=== PATIENT | male | born 1995 | race Caucasian/White ===

== ENCOUNTER 2024-08-15 10:28 | Outpatient (CLI) | payer MEDICAID, SELFPAY | END 2024-08-15 10:29 | disposition home or self-care (01) | PROVIDERS: PCP Registered Nurse; Visit Provider Registered Nurse | DX: R10.13 Epigastric pain (principal) | CPT/HCPCS: 80053; 83690 ==

== ENCOUNTER 2024-08-23 10:39 | Outpatient (CLI) | payer MEDICAID, SELFPAY ==
--- NOTE | 2024-08-23 10:45 | CRLHL7_ITS ---
For Patients: As a result of the Century Cures Act, medical imaging exams and procedure reports are released immediately into your electronic medical record. You may view this report before your referring provider. If you have questions, please contact your health care provider. INDICATION: Right upper quadrant and epigastric abdomen pain TECHNIQUE: Ultrasound abdomen limited. Sonographic images of the right upper quadrant were obtained using cummings-scale and color Doppler images. COMPARISON: None FINDINGS: Liver: Diffusely increased echogenicity attenuating the sound beam with craniocaudal diameter of 18.2 centimeters. No masses. No intrahepatic biliary dilatation. Gallbladder: No stones or sludge. Normal wall thickness. No pericholecystic fluid. Common bile duct: 5 mm. Pancreas: Partially obscured by bowel gas without discrete lesion. Mildly increased echogenicity suggesting some fatty replacement/atrophy. Right kidney: Normal in size. Normal echotexture and cortex. No masses, stones, or hydronephrosis. Vasculature: Proximal abdominal aorta and IVC are normal. IMPRESSION: 1. Hepatomegaly with moderate to severe hepatic steatosis. 2. Unremarkable sonographic appearance of the gallbladder and biliary tree. Dictated by Severiano Patel MD @ 08/23/2024 12:33:20 PM (Electronically Signed)
== END 2024-08-23 10:40 | disposition home or self-care (01) ==
LOC: US 10:41
PROVIDERS: PCP Registered Nurse; Visit Provider Registered Nurse
DX: R10.13 Epigastric pain (principal); R16.0 Hepatomegaly, not elsewhere classified; K76.0 Fatty (change of) liver, not elsewhere classified; R74.8 Abnormal levels of other serum enzymes; R10.11 Right upper quadrant pain
CPT/HCPCS: 76705

== ENCOUNTER 2024-09-19 16:11 | Outpatient (CLI) | payer MEDICAID, SELFPAY | END 2024-09-19 16:12 | disposition home or self-care (01) | LOC: NFLDREF 16:11 | PROVIDERS: PCP Registered Nurse; Visit Provider Registered Nurse | DX: R74.8 Abnormal levels of other serum enzymes (principal) | CPT/HCPCS: 80076 ==

== ENCOUNTER 2025-01-19 13:08 | Emergency (ER) | payer MEDICAID, SELFPAY ==
--- OUTSIDE RECORDS SUMMARY | 2024-11-07 05:01 | XMS_ITS | Continuity of Care Document ---
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 Name Role Phone Eunice Smith CRNA Unavailable Unavailable Allergies, Adverse Reactions, Alerts Substance Reaction Status Criticality No Known Allergies Active No Inform ation Medications Medication Instructions Dosage Effective Dates (start - stop) Status Comments omeprazole 20 mg capsule,delayed release take 1 capsule by oral route every day 30 minutes to 1 hour before a meal 20 MG - Active Procedures Procedure Date Ugi Endo; W/bx 1/mx Level Iv-surg Path Gross/micro 25 FibroScan Office Cons Moderate Routine Serum Collection Advance Directives Directive Yes / No Effective Date File Name No Information Encounters Encounter Description Practice Location Reason(s) For Visit Diagnoses Date Provider Providers Copied on Encounter [facility], [address] [address], [place], [place], [id number], [place] tel:[phone] [facility] No Information Luis Dawson. [address] [facility], [facility] [address], [place], [place], [id number] , [place]. tel:[phone] Referring Provider: Guille Cruz, [address] [facility] [address], [place], [address] . tel:[phone] [facility], [address] [address], [place], [place], [address], [place] tel:[phone] [facility] Epigastric painEpigastric pain 5 Naveed Han. [address] [facility], [facility] [address], [place], [place], [id number] , [place]. tel:[phone] Referring Provider: Referral Self, USE FOR SELF REFERRALS. [facility], [address] [address], [place], [place], [id number], [place] tel:[phone] [facility] Other specified abnormal findings of blood chemistry 5 Abhijit Dior. [address] [facility], [facility] [address], [place], [place], [address] , [place]. tel:[phone] Referring Provider: Referral Self, USE FOR SELF REFERRALS. Office Cons Moderate [facility], [address] [address], [place], [place], [id number], [place] [phone] [facility] GI Symptoms or Concerns (chief complaint) Abnormal LFTsEpigastric pain 5 Abhijit Dior. [address] [facility], [facility] [address], [place], [place], [address] , [place]. tel:[phone] Referring Provider: Aby Barrett DNP, [address] [place], [address]. tel:[phone] Family History Family Member Type Diagnosis Age At Onset No Information Payers Payer name Insurance type Covered democrat ID Authordiliaa jaime(s) diego [facility] [id number] Social History Type Description Quantity Date Captured Comments Sex Male Smoking Status No Information Chief Complaint And Reason For Visit No Information Reason For Referral Reason For Referral No Information History Of Present Illness Encounter Date Complaint History Of Prese nt Illness GI Symptoms or Concerns This is a 29-year-old man presents for consultation of abnormal LFT and hepatic steatosis. Consult requested by Aby Barrett DNP. Patient was recently seen by the primary care office for further evaluation of a 2-month history of nonspecific intermittent upper abdominal pain. He underwent labs which revealed normal WBC 8.7, normal hemoglobin 16.7, MCV 87, and normal platelet count 317. Kidney function is preserved with serum creatinine 0.9. Labs September 19, 2024 incidentally noted abnormal LFT, AST 58, ALT 103, alkaline phosphatase 74, total bilirubin 0.7, albumin 4.8, and total protein 8.1. Patient has no known prior history of liver disease. I do not have baseline LFTs to compare with. Lipase normal 116.Patient underwent chest x-ray and x-ray abdomen, both largely unrevealing. X-ray abdomen revealed nonspecific nonobstructive bowel gas pattern and minimal proximal stool. Patient underwent abdominal ultrasound which revealed diffusely increased echogenicity of the liver suggestive of hepatic steatosis. Liver enlarged measuring 18.2 cm. No focal liver mass seen. No intrahepatic biliary dilation. Common bile duct 5 mm.No history of alcohol misuse. No known family history of chronic liver disease. No known history of type 2 diabetes, hypertension, or hyperlipidemia. Patient is known to have obstructive sleep apnea, mild. Patient is asymptomatic from liver standpoint. His main complaint is occasional epigastric pain and right upper quadrant pain associated with food intake. He also reports heartburn, but no dysphagia or odynophagia. No nocturnal symptoms. No changes in bowel habits. He reports regular bowel habits daily. No blood in the stool or black tarry stool. His weight is stable. He went on Prilosec 20 mg daily prescribed by primary care physician, yet no improvement in symptoms. He increased Prilosec to 20 mg twice daily which led to some but incomplete improvement in his symptoms. Functional Status Date Functional Assessmen t No Information Instructions Date Instruction Additional Infor mation No Information Assessments Type Assessment Date No Information Patient Care Teams Name Effective Dates (start - stop) Status Members No Information
--- OUTSIDE RECORDS SUMMARY | 2024-11-07 05:01 | XMS_ITS | Continuity of Care Document ---
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 [address] [facility], [facility] [address], [place], [place], [id number] , [place]. tel:[phone] Referring Provider: Guille Cruz, [address] [facility] [address], [place], [address] . tel:[phone] [facility], [address] [address], [place], [place], [address], [place] tel:[phone] [facility] Epigastric painEpigastric pain 5 Naveed Han. [address] [facility], [facility] [address], [place], [place], [id number] , [place]. tel:[phone] Referring Provider: Referral Self, USE FOR SELF REFERRALS. [facility], [address] [address], [place], [place], [address], [place] tel:[phone] [facility] Other specified abnormal findings of blood chemistry 5 Abhijit Dior. [address] [facility], [facility] [address], [place], [place], [address] , [place]. tel:[phone] Referring Provider: Referral Self, USE FOR SELF REFERRALS. Office Cons Moderate [facility], [address] [address], [place], [place], [address], [place] [phone] [facility] GI Symptoms or Concerns (chief complaint) Abnormal LFTsEpigastric pain 5 Abhijit Dior. [address] [facility], [facility] [address], [place], [place], [address] , [place]. tel:[phone] Referring Provider: Aby Barrett DNP, [address] [place], [address]. tel:[phone] Family History Family Member Type Diagnosis Age At Onset No Information Payers Payer name Insurance type Covered alliance party ID Authordiliaa jaime(s) diego [facility] [id number] Social History Type Description Quantity Date Captured [...]
--- OUTSIDE RECORDS SUMMARY | 2025-01-19 13:11 | XMS_ITS | Clinical Summary ---
Author Organization [facility] Address [address] [place] [address] Care Team Providers Care Sales Host Name Role Phone Clinic, [facility] Primary [facility] ider Allergies No known active allergies Medications traZODone (DESYREL) 50 mg tablet 3 Active escitalopram oxalate (LEXAPRO) 10 mg tablet 3 Active albuterol HFA (PRO-AIR; VENTOLIN; PROVENTIL) 90 mcg/actuation inhalerIndication s:Cough, unspecified type Inhale 1-2 Puffs by mouth every 4 hours if needed for Shortness Of Breath or Wheezing. 1 Each 4 Active budesonide (Pulmicort Flexhaler) 180 mcg/actuation inhalerIndication s:Asthma, unspecified asthma severity, unspecified whether complicated, unspecified whether persistent (HC) 2 puffs qhs 1 Each 11 4 Active beclomethasone dipropionate (Qvar RediHaler) 80 mcg/actuation HFAb HFA inhalerIndication s:Asthma, unspecified asthma severity, unspecified whether complicated, unspecified whether persistent (HC) Two puffs qhs Doesn't need a spacer or shaking. 1 Each 5 Active Active Problems No known active problems Social History Tobacco Use Types Packs/Day Years Used Date Smoking Tobacco: Never Smokeless Tobacco: Never Tobacco Cessation:Counseling Given: Not Answered Alcohol Use Standard Drinks/Week Comments Never 0 (1 standard drink = 0.6 oz pur e alcohol) Social Connections Answer Date Recorded Frequency of Communication with Friends and Fami ly 4 05/23/2023 Financial Resource Strain Answer Date R ecorded Difficulty of Paying Living Expenses 3 05/23/2023 Difficulty of Paying Living Expenses Not on file 05/23/2023 Food Insecurity Answer Date Recorded Do you worry your food will run out before you are able to buy more? 1 02/07/2023 Transportation Needs Answer Date Record ed Lack of Transportation (Medical) 1 05/23/2023 Housing Stability Answer Date Recorded What is your housing situation today? 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 Sexual Orientation Straight 05/23/2023 4: 50 PM [employer]RIC FINISHER Obstetrics History Last Filed Vital Signs Vital Sign Reading Time Taken Comments Blood Pressure 117/83 04/13/2024 12:15 PM FABRIC FINISHER Pulse 66 04/13/2024 12:15 PM FABRIC FINISHER Temperature 36.5 C (97.7 F) 04/13/2024 12:15 PM FABRIC FINISHER Respiratory Rate 14 04/13/2024 12:15 PM FABRIC FINISHER Oxygen Saturation 95% 04/13/2024 12:15 PM FABRIC FINISHER Inhaled Oxygen Concentration - - Weight 86.2 kg (190 lb) 03/11/2024 4:09 PM FABRIC FINISHER Height 170.2 cm (5' 7) 03/11/2024 4:09 PM FABRIC FINISHER Body Mass Index 29.76 03/11/2024 4:09 PM FABRIC FINISHER Plan of Treatment Health Maintenance Due Date Last Done Comments Tetanus booster 2006 Depression screening for age 12+ 2007 HIV for age 15-65 2010 Hepatitis C screening for ag e 18-79 2013 Hepatitis B series for 19+ ( 1 of 3 - 19+ 3-dose series) 2014 HPV series for age 9-45 (1 - 3-dose SCDM series) 2022 COVID-19 vaccine series ( - season) 2024 Influenza Vaccine (#1) 2024 BMI (ht and wt on same day) for age 18+ 03/11/2025 03/11/2024, 07/06/2023, 06/01/2023 RSV vaccine for adults or (1 - 1-dose 75+ series) 2070 Pneumococcal series for age 6-49 Aged Out No longer eligible b ased on patient's age to complete this topic Insurance [address] [place] [address] [facility] Care Teams Sales Host Relationship Specialty Start Date End Date Clinic, [address] [address] PCP - General 07/07/22
[2025-01-19 13:18] VITALS: BP 139/90; PULSE 88; RESP 20; TEMP 36.4; O2SAT 95; BMI 33.1
--- NOTE | 2025-01-19 13:39 | CRLHL7_ITS ---
For Patients: As a result of the Century Cures Act, medical imaging exams and procedure reports are released immediately into your electronic medical record. You may view this report before your referring provider. If you have questions, please contact your health care provider. INDICATION: Cough TECHNIQUE: Two view chest. FINDINGS: The lungs are clear. The heart, mediastinum and pulmonary vessels are of normal size. There is no evidence of pleural disease. IMPRESSION: Negative chest. Dictated by Danuta Bills MD @ 01/19/2025 2:14:35 PM (Electronically Signed)
--- NOTE | 2025-01-19 13:47 | ED_ITS ---
HPI - General Adult General Date Seen: 01/19/25 Chief complaint: Cough Stated complaint: Bad Cough Time Seen by Provider: 01/19/25 13:08 Source: patient Mode of arrival: ambulatory Limitations: no limitations History of Present Illness HPI narrative: Patient is a 29-year-old male presenting to the emergency department for cough. He states the cough has been going on past couple days. States sometimes he coughs so hard causes his diaphragm to her. Denies any abdominal pain. Does state he has some chest tightness. Denies any shortness of breath. Denies having chest tightness like this before. [place] like he had fevers earlier but has not had any objective fevers. Denies headache, lightheadedness, weakness, numbness, abdominal pain, diarrhea, constipation. States his daughter had viral symptoms a couple days ago. No other concerns noted at this time. Related Data Home Medications ?Medication ?Instructions ?Recorded ?Confirmed beclomethasone dipropionate 80 2 inh inhalation QPM 01/19/25 mcg/actuation HFA breath activated aerosol (Qvar RediHaler) Previous Rx's ?Medication ?Instructions ?Recorded omeprazole 20 mg capsule,delayed 20 mg PO QDAY 90 days #90 caps 09/19/24 release albuterol sulfate 90 mcg/actuation 2 inh inhalation Q6 -8H PRN 10/24/24 aerosol inhaler shortness of breath or wheez ing, before exercise #6.7 grams Allergies Allergy/AdvReac Type Severity Reaction Status Date / Time cat dander Allergy Unknown Verified 01/19/25 13:22 dog dander Allergy Unknown Verified 01/19/25 13:22 Review of Systems Status of ROS: Reports: 10 or more systems reviewed and unremarkable except as noted in History and below [facility] Medical History Obesity (BMI 30.0-34.9) ?E66.811 - Obesity, class 1 (ICD-10) Obstructive sleep apnea treated with continuous positive airway pressure (CPAP) ?G47.33 - Obstructive sleep apnea (adult) (pediatric) (ICD-10) Shoulder separation ?S43.006A - Unspecified dislocation of unspecified shoulder joint, initial encounter (ICD-10) Persistent asthma Allergic rhinitis ?J30.9 - Allergic rhinitis, unspecified (ICD-10) NAFLD (nonalcoholic fatty liver disease) (08/2024) ?K76.0 - Fatty (change of) liver, not elsewhere classified (ICD-10) Kidney stones ?N20.0 - Calculus of kidney (ICD-10) Surgical History History of esophagogastroduodenoscopy (EGD) (11/07/24) ?Z98.890 - Other specified postprocedural states (ICD-10) H/O wisdom tooth extraction (~2012) ?K08.409 - Partial loss of teeth, unspecified cause, unspecified class (ICD- 10) Family History Father Kidney stones Mother Stroke, Onset Age: 46 Social History Narrative: , 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, 3 -year-old daughter joint custody, from [place] originally Does not exercise Never smoker Does not drink alcohol No drug use What is your current living situation?: I presently have a place to live Problems where you live: no known problems In the past 12 months, utilities in danger of being shut off: no In past 12 months, lack of transportation kept you from medical appts, meetings, work, or getting things needed for daily living: no In the past 12 mos, have been you worried that your food would run out before you had money to buy more?: never true In the past 12 mos, the food you bought just didn't last and you didn't have money to buy more?: never true Smoking Status: Never smoker How often do you have a drink containing alcohol: never AUDIT-C Alcohol total score: 0 Non-prescribed substance use: denies use Caffeine: Yes How often does anyone, including family, friends and others, physically hurt you : never How often does anyone, including family, friends and others, insult or talk down to you: rarely How often does anyone, including family, friends and others, threaten you with harm: never How often does anyone, including family, friends and others, scream or curse at you: rarely Health Related Social Needs: Other personal risk factors, not elsewhere classified (Z91.89) Exam Narrative: Exam Narrative: Const: Well-nourished, Well-developed, in no distress Eyes: PERRL, no conjunctival injection, and symmetrical lids HENT: Atraumatic external nose and ears. Moist mucous membranes. Neck: Symmetric, trachea midline, No thyromegaly. CVS: RRR, No murmurs or gallops. Peripheral pulses 2+ and equal in all extremities RESP: Unlabored respiratory effort. Clear to auscultation bilaterally. GI: Nontender/Nondistended, No rebound or guarding. MSK:Extremities w/o deformity, Normal Active ROM Skin: Warm, Dry. No rashes or lesions. Neuro: Normal Muscle tone, No focal neurological deficits. Psych: Awake, Alert, & Oriented x3. Appropriate mood and affect. Const: Vital Signs, click to edit/add: Vital Signs - 24 hr 01/19/25 13:18 Temperature 97.5 F L Pulse Rate [Pulse Oximeter] 88 Respiratory Rate 20 Blood Pressure [Ri ght Upper Arm] 139/90 H Pulse Oximetry 95 Oxygen Delivery Me thod Room Air Course Vital Signs Vital signs: Initial Vital Signs Temperature 97.5 F L 01/19/25 13:18 Temperature Source Temporal Artery Scan 01/19/25 13:18 Pulse Rate 88 01/19/25 13:18 Respiratory Rate 20 01/19/25 13:18 Blood Pressure 139/90 H 01/19/25 13:18 Blood Pressure Mean 106 H 01/19/25 13:18 Blood Pressure Position Sitting 01/19/25 13:18 Pulse Oximetry 95 01/19/25 13:18 Oxygen Delivery Method Room Air 01/19/25 13:18 Vital Signs Temperature 97.5 F L 01/19/25 13:18 Pulse Rate 88 01/19/25 13:18 Respiratory Rate 20 01/19/25 13:18 Blood Pressure 139/90 H 01/19/25 13:18 Pulse Oximetry 95 01/19/25 13:18 Oxygen Delivery Method Room Air 01/19/25 13:18 Temperature 97.5 F L 01/19/25 13:18 Pulse Rate 88 01/19/25 13:18 Respiratory Rate 20 01/19/25 13:18 Blood Pressure 139/90 H 01/19/25 13:18 Pulse Oximetry 95 01/19/25 13:18 Oxygen Delivery Method Room Air 01/19/25 13:18 Medical Decision Making MDM Narrative Medical decision making narrative: Patient is a 29-year-old male presenting to emergency department for viral sy mptoms. He is also having some chest pain. The differential diagnosis of chest pain is broad and includes common etiologies such as musculoskeletal strain, GERD, pneumonia, etc. More serious etiologies considered include PE, coronary artery disease, pneumothorax, aortic dissection, aortic aneurysm. I have low concern for PE, aortic dissection, aortic aneurysm. Since he is having some chest tightness will order EKG and troponin to look for signs of myocarditis. Will order chest x-ray to look for signs pneumonia or pneumothorax. Also order viral swabs. Lab work returned showing no concerning abnormalities. Concerning like the symptoms are not believe repeat troponin is necessary. EKG reviewed myself shows no acute concerning abnormalities. This time symptoms are likely related to a viral syndrome he is safe for discharge. He agrees to this plan. Lab Data Labs: Lab Results 01/19/25 01/19/25 Range/Units 13:22 13:39 SARS-CoV-2 (PCR) Negative SARS-CoV-2 (Negative) Influenza Type A (PCR) Negative PCR FLU A (Negative) Influenza Type B (PCR) Negative PCR FLU B (Negative) RSV (PCR) Negative PCR RSV (Negative) POC Troponin I 0.01 (0.01-0.04) ng/ml Imaging Data Chest x-ray: Attestation: I have reviewed the pertinent imaging results. Radiologist's impression: Negative chest. Dictated by Danuta Bills MD @ 01/19/2025 2:14:35 PM Discharge Plan Discharge Clinical Impression: Acute viral syndrome Patient Disposition: Home, Self-Care Condition: Stable Instructions: Viral Syndrome (ED) Additional Instructions: Symptoms are likely from a virus and should resolve on around. Can try [id number] cough medication. Return to emergency department for an any concerning symptoms. Prescriptions: No Action omeprazole 20 mg capsule,delayed release(DR/EC) 20 mg PO QDAY 90 Days Qty: 90 1RF Qvar RediHaler 80 mcg/actuation HFA aerosol breath activated 2 inh inhalation QPM albuterol sulfate 90 mcg/actuation HFA aerosol inhaler 2 inh inhalation Q6-8H PRN (Reason: shortness of breath or wheezing, before exercise) Qty: 6.7 5RF Follow Up/Referrals: Bonnie Lopez MD [Primary Care Provider, Family Practice] Stand Alone Forms: [employer] Info Instructions
[2025-01-19 14:05] LABS: Troponin, Point-of-Care* 0.01 ng/ml (0.01-0.04)
[2025-01-19 14:07] LABS: PCR FLU A Negative PCR FLU A (Negative); PCR FLU B Negative PCR FLU B (Negative); PCR RSV Negative PCR RSV (Negative); SARS PCR* Negative SARS-CoV-2 (Negative)
== END 2025-01-19 14:34 | disposition home or self-care (01) ==
PROVIDERS: Emergency Provider Student in an Organized Health Care Education/Training Program; PCP Family Medicine
DX: R05.9 Cough, unspecified (principal); B34.9 Viral infection, unspecified
CPT/HCPCS: 36415; 71046; 84484; 87631; 93005; 99284

== ENCOUNTER 2025-01-30 10:06 | Outpatient (CLI) | payer MEDICAID, SELFPAY | END 2025-01-30 10:07 | disposition home or self-care (01) | LOC: NFLDREF 02-14 02:04 | PROVIDERS: PCP Family Medicine; Referring Provider Family Medicine; Visit Provider Obstetrics & Gynecology | DX: Z31.69 Encounter for other general counseling and advice on procreation (principal) | CPT/HCPCS: 89322 ==

== ENCOUNTER 2025-02-07 15:24 | Outpatient (CLI) | payer MEDICAID, SELFPAY ==
--- NOTE | 2025-02-07 16:00 | CRLHL7_ITS ---
For Patients: As a result of the Century Cures Act, medical imaging exams and procedure reports are released immediately into your electronic medical record. You may view this report before your referring provider. If you have questions, please contact your health care provider. INDICATION: One month of cough, wheezing, hemoptysis. Concern for pulmonary embolism TECHNIQUE: CT chest PE was acquired with 95 cc Isovue 370 IV contrast. Coronal and MIP reconstructions were performed. COMPARISON: Chest radiograph 01/19/2025. FINDINGS: Heart and vasculature: Contrast opacification of the pulmonary arterial tree is adequate. No sign of pulmonary embolism. Heart size is normal. Thoracic aorta and pulmonary artery are normal in caliber. Lungs and pleura: Prominent predominantly ground-glass centrilobular nodularity in the left lower lobe and to a lesser extent the inferior right lower lobe. Minimal subsegmental atelectasis. There are areas of bronchial wall thickening. No pleural effusion or pneumothorax. Lymph nodes/mediastinum: No mediastinal, hilar, or axillary adenopathy. Chest wall: Unremarkable. Upper abdomen: No acute or significant findings. Bones: No acute or suspicious osseous abnormality. IMPRESSION: 1. No evidence of pulmonary embolism. 2. Centrilobular nodularity in the left and right lower lobes consistent with endobronchial process such as endobronchial infection/bronchiolitis, or an inflammatory process, including aspiration in the appropriate clinical setting. Bronchial wall thickening is present. Please note that all CT scans at this facility use dose modulation, iterative reconstruction, and/or weight-based dosing when appropriate to reduce radiation dose to as low as reasonably achievable. Dictated by Candida Vallecillo MD @ 02/07/2025 6:48:23 PM (Electronically Signed)
== END 2025-02-07 15:25 | disposition home or self-care (01) ==
LOC: CT 15:25
PROVIDERS: PCP Family Medicine; Visit Provider Family Medicine
DX: R05.9 Cough, unspecified (principal); R91.8 Other nonspecific abnormal finding of lung field; R06.2 Wheezing; R04.2 Hemoptysis
CPT/HCPCS: 71275; Q9967

== ENCOUNTER 2025-03-24 09:44 | Outpatient (CLI) | payer MEDICAID, SELFPAY | END 2025-03-24 09:45 | disposition home or self-care (01) | LOC: NFLDREF 03-29 21:31 | PROVIDERS: PCP Family Medicine; Referring Provider Family Medicine; Visit Provider Obstetrics & Gynecology | DX: R86.9 Unspecified abnormal finding in specimens from male genital organs (principal) | CPT/HCPCS: 80053; 80061; 89322 ==